=== PATIENT | female | born 1985 | race African-American/Black ===

== ENCOUNTER 2016-12-11 05:11 | Day surgery (SDC) | payer MEDICAID ==
[2016-12-09 10:08] LABS: BASOPHILS 0.4 % (0.0-2.0); EOSINOPHILS 3.4 % (0-7); HEMATOCRIT 39.2 % (36.0-48.0); LYMPHOCYTES 34.6 % (15-50); MCHC 33.2 g/dL (31.0-37.0); MCV 87.3 fL (80.0-100.0); MEAN PLATELET VOLUME 9.4 fL (7.4-10.4); MONOCYTES 8.2 % (2-11); NEUTROPHILS 53.4 % (40-80); RBC 4.49 10x6/uL (4.00-5.40); RDW 12.9 % (11.5-14.5); WBC 5.4 10x3/uL (4.8-10.8)
[2016-12-09 10:12] LABS: PLATELET COUNT 349 10x3/uL (130-400)
[~2016-12-11] VITALS: Ht 175.3 cm; Wt 93.9 kg
[~2016-12-11 05:11] MED LIST: ADIPEX-P37.5 M1 PO; ANUSOL-HC 2.5%30 GM RC; CELEXA40 MG PO; MOBIC7.5 MG PO; MULTI-DAY VITAM1 TAB PO; NEURONTIN 300300 MG PO; NORCO 7.5/325 T1 TA1 PO; OMEPRAZOLE40 MG PO; VITAMIN B-121000 MCG PO; ZANAFLEX4 MG PO; ZOFRAN4 MG PO
[2016-12-11 07:39] LABS: HCG URINE NEGATIVE (NEGATIVE)
[2016-12-11 07:47] VITALS: BP 105/67; Ht 175.3 cm; Wt 93.9 kg
--- NOTE | 2016-12-11 11:46 | HP ---
PATIENT: CELESTINO STEVENSON MEDICAL RECORD: [id number] ACCOUNT: [id number] LOCATION:[facility] : 87 ADMISSION DATE: 12/11/16 HISTORY AND PHYSICAL EXAMINATION HISTORY OF PRESENT ILLNESS: This patient is a 31-year-old 3, para 2 female with colposcopically-guided biopsy revealing severe cervical dysplasia. She is scheduled for a LEEP procedure in a.m. for further diagnosis and treatment. MEDICAL HISTORY: DRUG ALLERGIES: None known. CURRENT MEDICATIONS: Mobic, Celexa, omeprazole, gabapentin, oral contraceptives for control. PREVIOUS SURGERIES: Retinal detachment in 2005. MEDICAL PROBLEMS: Denies heart disease, diabetes, hypertension. FAMILY HISTORY: Noncontributory. REVIEW OF SYSTEMS: No chest pain, no dyspnea. PHYSICAL EXAMINATION: VITAL SIGNS: Weight is 208 pounds. Blood pressure 124/80. HEENT: Unremarkable. LUNGS: Clear. HEART: Regular rate and rhythm. ABDOMEN: Soft and nontender. PELVIC: Examination is current and deferred for anesthesia. EXTREMITIES: No cyanosis, clubbing or edema. NEUROLOGIC: Grossly intact. IMPRESSION: Severe cervical dysplasia. PLAN: LEEP excision of the ectocervix and endocervical curettage. All indicated procedures in a.m. for diagnosis and treatment. I have discussed with the patient and her the risks of surgery, including anesthesia, infection, bleeding, injury to other organs nearby and answered all their questions. TRANSINT:[id number] Voice Confirmation ID: [id number] DOCUMENT ID: [id number] NICK RAMOS MD at 1146 CC: [id number] DICTATION DATE: 12/10/16 1646 COMPUTATIONAL SCIENTIST: 12/10/16 1823 [facility] [address] [place] [address]
[2016-12-11] MEDS ORDERED: PERCOCET 5-3251 TAB PO (12:55)
[2016-12-11] MEDS ORDERED: IBUPROFEN600 MG PO (12:55)
--- NOTE | 2016-12-11 13:55 | NUR ---
STATES PAIN LEVEL IS DOWN TO A "4". STATES READY TO GO HOME. DISCHARGED HOME VIA WC.
--- NOTE | 2016-12-16 08:01 | OP ---
PATIENT NAME: CELESTINO STEVENSON MEDICAL RECORD: [id number] :87 LOCATION:[facility] ADMISSION DATE: SURGEON: DEANNA RAMOS MD DATE OF OPERATION: 12/11/2016 PREOPERATIVE DIAGNOSIS: Severe cervical dysplasia. POSTOPERATIVE DIAGNOSIS: Severe cervical dysplasia. PROCEDURE: LEEP excision of the ectocervix and endocervical curettage. SURGEON: Deanna Ramos MD. ANESTHESIA: General and local. FINDINGS: A large lesion extending over the superior and inferior lips of the cervix. ESTIMATED BLOOD LOSS: Minimal. COMPLICATIONS OF PROCEDURE: None. OPERATIVE NOTE: The patient was taken to the OR and under adequate general anesthesia, prepped and draped in the usual manner for vaginal procedures. Colposcope was used to evaluate the cervix using acetic acid solution and Lugol solution revealing the above listed findings. Local anesthetic was then administered in 4 quadrants to aid in hemostasis and postop pain relief. A 25 mm LEEP loop was then used to excise the entire lesion in 2 sections. Endocervical curettage was then performed and sent as a separate specimen. The LEEP bed and margins were then cauterized using the ball cautery device. Hemostasis was good. Astringent was applied and the patient went to recovery area in good condition. TRANSINT:[id number] Voice Confirmation ID: [id number] DOCUMENT ID: [id number] DEANNA RAMOS MD at 0801 CC: [id number] DICTATION DATE: 12/11/16 1156 [employer] ATTENDANT: 12/11/16 192 [facility] 12/11/16 [id number] [place] [address]
== END 2016-12-11 13:55 | disposition home or self-care (01) ==
LOC: D.OPS 05:11 → D.PAN 10:45 → D.OPS 13:55
PROVIDERS: Obstetrics & Gynecology
DX: N87.1 Moderate cervical dysplasia (principal); N72 Inflammatory disease of cervix uteri; Z79.1 Long term (current) use of non-steroidal anti-inflammatories (NSAID); Z79.3 Long term (current) use of hormonal contraceptives; Z79.899 Other long term (current) drug therapy